=== PATIENT | female | born 1945 ===

== ENCOUNTER 2018-01-26 13:56 | Emergency (ER) | payer MEDICARE ==
[2018-01-26 14:20] VITALS: BP 136/77
--- NOTE | 2018-01-26 15:26 | EDM.PDOC ---
ED HPI GENERAL MEDICAL PROBLEM - General Chief Complaint: Back Pain or Injury Stated Complaint: PAIN IN BACK SENT FROM [facility] Time Seen by Provider: 01/26/18 14:02 Source of Information: Reports: Patient History Limitations: Reports: No Limitations - History of Present Illness INITIAL COMMENTS - FREE TEXT/NARRATIVE: 72 y/o F with hx prior provoked DVT after orthopedic procedure not currently on anticoagulation sent from [facility] for r/o PE. She presented to clinic there today for left back/chest pain. States pain is located in L shoulder/back area. No injury. pain is intermittently severe and worse with deep breathing. No SOB. No chest pain. No recent injury. Pain is worse with movement, better with rest. No fever/cough. No additional complaint. Left Shoulder Pain Score (Numeric/FACES): 8 - Related Data Allergies Allergy/AdvReac Type Severity Reaction Status Date / Time No Known Allergies Allergy Verified 05/13/15 15:28 Home Meds: Home Meds Calcium Carbonate [Calcium] 500 mg PO DAILY 08/18/14 [History] Calcium/Vit B12/FA/Pyridoxine [Folic Acid-Vit B6-Vit B12 Tab] 1 each PO DAILY [History] Cholecalciferol (Vitamin D3) [Vitamin D] 2,000 unit PO DAILY 08/18/14 [History] Cyanocobalamin (Vitamin B12) [Vitamin B12] 1,000 mcg PO DAILY 08/18/14 [History] Multivitamin [Multivitamins] 1 each PO DAILY 08/18/14 [History] Oxybutynin 5 mg PO BID 08/18/14 [History] metFORMIN [Glucophage] 1,000 mg PO BID 08/18/14 [History] DULoxetine HCl [Cymbalta] 30 mg PO DAILY 01/26/18 [History] Estradiol 0.5 mg VAG ASDIRECTED 01/26/18 [History] Lisinopril/Hydrochlorothiazide [Lisinopril-Hctz 10-12.5 mg Tab] 10 - 12.5 mg PO DAILY 01/26/18 [History] Rosuvastatin Calcium [Crestor] 40 mg PO DAILY 01/26/18 [History] oxyCODONE 5 mg PO QID PRN #12 tab 01/26/18 [Rx] Past Medical History Cardiovascular History: Reports: High Cholesterol, Hypertension Genitourinary History: Reports: UTI, Recurrent Musculoskeletal History: Reports: Other (See Below) Other Musculoskeletal History: right knee issues possibly to have knee surgery Psychiatric History: Reports: Depression Endocrine/Metabolic History: Reports: Diabetes, Type II, Other (See Below) Other Endocrine/Metabolic History: pancreatic cyst removed and benign - Past Surgical History GI Surgical History: Reports: Cholecystectomy Female Surgical History: Reports: Hysterectomy Social & Family History - Tobacco Use Smoking Status *Q: Never Smoker - Caffeine Use Caffeine Use: Reports: Coffee, Soda - Recreational Drug Use Recreational Drug Use: No Drug Use in Last 12 Months: No ED ROS GENERAL - Review of Systems Review Of Systems: See Below Constitutional: Denies: Fever HEENT: Reports: No Symptoms Respiratory: Denies: Shortness of Breath Cardiovascular: Denies: Chest Pain GI/Abdominal: Reports: No Symptoms Musculoskeletal: Reports: Shoulder Pain, Back Pain Skin: Reports: No Symptoms Neurological: Reports: No Symptoms ED EXAM, UPPER BACK/NECK PAIN - Physical Exam Exam: See Below Exam Limited By: No Limitations General Appearance: Alert, WD/WN, No Apparent Distress Eye Exam: Bilateral Eye: Normal Inspection Ears Exam: Normal External Exam Nose Exam: Normal Inspection Throat/Mouth Exam: Normal Inspection Head Exam: Atraumatic, Normocephalic Neck Exam: Non-Tender, Full Range of Motion, Normal Alignment, Normal Inspection Cardiovascular/Respiratory: Regular Rate, Rhythm, No M/R/G, Normal Peripheral Pulses, Normal Breath Sounds, No Respiratory Distress, Other (No anterior chest wall TTP) GI/Abdominal: Soft, Non-Tender, No Distention Back Exam: Normal Inspection, Full Range of Motion, Other (+ paraspinal TTP of left upper and mid thoracic area, skin normal, this is location of pain but not totally reproducible ). No: CVA Tenderness (L), CVA Tenderness (R) Extremities: Normal Inspection, No Pedal Edema. No: Leg Pain Neurologic: No Motor/Sensory Deficits, Alert, Normal Mood/Affect, Oriented x 3 Psychiatric: Normal Affect, Normal Mood Skin Exam: Normal Color, Warm/Dry Course - Vital Signs Last Recorded V/S: Last Vital Signs Temp 36.9 C 01/26/18 14:17 Pulse 64 01/26/18 14:17 Resp 20 01/26/18 14:17 BP 136/77 01/26/18 14:17 Pulse Ox 96 01/26/18 14:17 - Orders/Labs/Meds Labs: Laboratory Tests 01/26/18 01/26/18 01/26/18 Range/Units 14:45 14:45 14:45 WBC 8.32 (3.98-10.04) K/mm3 RBC 4.33 (3.98-5.22) M/mm3 Hgb 12.8 (11.2-15.7) gm/L Hct 40.1 (34.1-44.9) % MCV 92.6 (79.4-94.8) fl MCH 29.6 (25.6-32.2) pg MCHC 31.9 L (32.2-35.5) g/dl RDW Std Deviation 45.1 (36.4-46.3) fL Plt Count 290 (182-369) K/mm3 MPV 9.4 (9.4-12.3) fl Neut % (Auto) 60.4 (34.0-71.1) % Lymph % (Auto) 31.5 (19.3-51.7) % Mobile % (Auto) 6.4 (4.7-12.5) % Eos % (Auto) 1.3 (0.7-5.8) Baso % (Auto) 0.2 (0.1-1.2) % Neut # (Auto) 5.02 (1.56-6.13) K/mm3 Lymph # (Auto) 2.62 (1.18-3.74) K/mm3 Mobile # (Auto) 0.53 H (0.24-0.36) K/mm3 Eos # (Auto) 0.11 (0.04-0.36) K/mm3 Baso # (Auto) 0.02 (0.01-0.08) K/mm3 D-Dimer, Quantitative 0.30 (0.19-0.59) mg/L Sodium 141 (136-145) mEq/L Potassium 5.2 H (3.5-5.1) mEq/L Chloride 103 (98-107) mEq/L Carbon Dioxide 28 (21-32) mEq/L Anion Gap 15.2 H (5-15) BUN 18 (7-18) mg/dL Creatinine 1.0 (0.55-1.02) mg/dL Est Cr Clr Drug Dosing 48.30 mL/min Estimated GFR (MDRD) 55 (>60) mL/min BUN/Creatinine Ratio 18.0 (14-18) Glucose 99 (83-115) mg/dL Calcium 9.7 (8.5-10.1) mg/dL Total Bilirubin 0.5 (0.2-1.0) mg/dL AST 39 H (15-37) U/L ALT 71 H (14-59) U/L Alkaline Phosphatase 61 (46-116) U/L Troponin I < 0.017 (0.00-0.056) ng/mL Total Protein 7.4 (6.4-8.2) g/dl Albumin 3.9 (3.4-5.0) g/dl Globulin 3.5 gm/dL Albumin/Globulin Ratio 1.1 (1-2) Meds: Medications Discontinued Medications Generic Name Dose Route Start Last Admin Trade Name Freq PRN Reason Stop Dose Admin Acetaminophen 650 mg 01/26/18 15:32 01/26/18 15:47 Tylenol PO 01/26/18 15:33 650 mg NOW ONE Administration - Re-Assessments/Exams Free Text/Narrative Re-Assessment/Exam: 01/26/18 19:48 Well appearing, normal vitals. D-d negative. Trop neg. EKG unremarkable. Suspect musculoskeletal source of pain. Discussed this with the patient, who is comfortable with discharge and plan for pain control. Departure - Departure Time of Disposition: 15:32 Disposition: Home, Self-Care 01 Clinical Impression: Back pain Qualifiers: Back pain location: thoracic back pain Chronicity: acute Back pain laterality: left Qualified Code(s): M54.6 - Pain in thoracic spine - Discharge Information Prescriptions: oxyCODONE 5 mg PO QID PRN #12 tab PRN Reason: Pain Instructions: Back Pain, Adult, [id number] Referrals: Ne Hernández PA-C [Primary Care Provider] - Forms: ED Department Discharge Additional Instructions: 1. Take ibuprofen and/or acetaminophen as needed for pain. You may also take your home supply of muscle relaxants. Take oxycodone as needed for severe pain only. This medication may make you sleepy or confused so no driving while taking it. 2. Use heat on area of pain. 3. Follow up with your clinic provider next week for further care. 4. Return to the ED if you have worsening pain, difficulty breathing, or any other concerning symptoms.
[2018-01-26] MEDS ORDERED: Acetaminophen 325 MG Tab PO ONE (15:32)
== END 2018-01-26 15:56 | disposition home or self-care (01) ==
LOC: JD.ED 13:56
DX: M54.6 Pain in thoracic spine (principal); E78.00 Pure hypercholesterolemia, unspecified; I10 Essential (primary) hypertension; E11.9 Type 2 diabetes mellitus without complications; Z79.899 Other long term (current) drug therapy; Z79.84 Long term (current) use of oral hypoglycemic drugs; R06.02 Shortness of breath; J98.11 Atelectasis
CPT/HCPCS: 36415; 71046; 80053; 84484; 85025; 85379; 99283; A9270; 93010